=== PATIENT | male | born 1990 | race African-American/Black ===

== ENCOUNTER 2017-06-18 01:53 | Inpatient (IN) | payer SELFPAY ==
[2017-06-18 02:41] LABS: Anion Gap 16 mmol/L (-14-95); Lactate 1.25 mmol/L (0.50-2.20); POC Est. GFR-MDRD-African-Amer Greater than 60; POC Estimated GFR-MDRD Greater than 60; T. Carbon Dioxide 4.4 mmol/L (1.0-85.0); pH (Venous) 7.115 (7.35-7.45); vO2 Saturation-calc 97.8 % (0.0-100.0)
[2017-06-18 02:55] LABS: Sodium 134 mmol/L (135-148)
[2017-06-18 02:56] LABS: Mode RA; Modified Allen's Test POSITIVE; Vent NO
[2017-06-18] MEDS ORDERED: Insulin Regular 100 units/100 ml in NS IVPB SCH (03:15)
[2017-06-18] MEDS ORDERED: Acetaminophen 325 MG TAB PO PRN (04:58)
[2017-06-18] MEDS ORDERED: Ondansetron HCl/PF 4 MG/2 ML Vial IVP PRN ×2 (04:58→05:17)
[2017-06-18] MEDS ORDERED: Sodium Chloride 0.9% 1,000 ML IV SCH (04:58)
[2017-06-18] MEDS ORDERED: Ondansetron ODT 4 MG TAB SL PRN (04:58)
[2017-06-18 05:00] VITALS: BMI 37.7
[2017-06-18] MEDS ORDERED: CCU Electrolyte Replacement 1 EACH IVPB ONE (05:17)
[2017-06-18] MEDS ORDERED: Dextrose 5 %-0.45 % NaCl 1,000 ML IV PRN (05:17)
[2017-06-18] MEDS ORDERED: Sodium Chloride 0.9% 1,000 ML IV PRN ×4 (05:17)
[2017-06-18] MEDS ORDERED: NS 0.9% w/ 20 MEQ KCL 1,000 ML IV PRN ×2 (05:17)
[2017-06-18] MEDS ORDERED: D5 1/2 NS w/20 mEq KCL 1,000 ML IV PRN (05:17)
[2017-06-18] MEDS ORDERED: HYDROcodone/Acetaminophen 7.5/325 mg Tablet PO PRN ×2 (05:30)
--- NOTE | 2017-06-18 05:30 | PDOC.EVN ---
Event Note - Event Note Event Note: Attedning H&P I personally evaluated the patient and discussed the management with Dr. Santos. I have reviewed the written H&P and it is repeated by me. I agree with the History, Examination, Assessment and Plan documented above with any addition or exceptions noted below. Mr. Cole has new onset Diabetes Mellitus with DKA. DKA protocol in place for fluid correction, glucose correction, and electrolyte therapy. I advised Mr Cole that central venous IV access would eb beneficial for him, and discussed risks and benefits. He does not consent to CVC placement. He is willing to reconsider when current IV access is lost.
[2017-06-18] MEDS ORDERED: Potassium Chloride 40 MEQ in Sodium Chloride 0.9% 250 ML 250 ML IVPB PRN (05:32)
[2017-06-18] MEDS ORDERED: Potassium Chloride 40 MEQ in Premix Bag 1 BAG IVPB PRN (05:32)
[2017-06-18] MEDS ORDERED: CCU ELECTROLYTE REPLACEMENT PROTOCOL FS PRN (05:32)
[2017-06-18] MEDS ORDERED: Potassium Phosphate 9 MMOL in Sodium Chloride 0.9% 100 ML IVPB PRN (05:32)
[2017-06-18] MEDS ORDERED: Potassium Phosphate 12 MMOL in Sodium Chloride 0.9% 250 ML 250 ML IV PRN (05:32)
[2017-06-18] MEDS ORDERED: Magnesium Oxide 400 MG TAB PO PRN ×2 (05:32)
[2017-06-18] MEDS ORDERED: Potassium Phosphate 15 MMOL in Sodium Chloride 0.9% 250 ML 250 ML IV PRN (05:32)
[2017-06-18] MEDS ORDERED: Magnesium 2 GM/NS 0.9% 100 ML 2 GM in Premix Bag 1 BAG IVPB PRN (05:32)
[2017-06-18] MEDS ORDERED: Potassium Chloride 20 MEQ TAB PO PRN (05:32)
[2017-06-18 06:19] LABS: BUN (Urea Nitrogen) 22 mg/dL (8.9-20.6); Calc. Creatinine Clearance 108 mL/min (70-130); Calcium 9.1 mg/dL (7.8-10.44); Chloride 104 mmol/L (98-107); Estimated GFR-MDRD 50; Magnesium 2.4 mg/dL (1.6-2.6); Phosphorus 2.5 mg/dL (2.3-4.7)
[2017-06-18 06:37] LABS: Carbon Dioxide Less than 8 mmol/L (22-29)
--- NOTE | 2017-06-18 06:43 | HP-2 ---
CODE STATUS: FULL. PRIMARY CARE PHYSICIAN: [facility] call from the nursing home. ATTENDING: Dr. Marlo Carr. RESIDENT: Kassie Santos D.O. HISTORIAN: Patient. CHIEF COMPLAINT: DKA transfer. HISTORY OF PRESENT ILLNESS: The patient is a 26-year-old male with no past medical history who prese nts as a transfer from [place] ED for newly diagnosed diabetes and diabetic ketoacidosis. Initi al blood sugar at [place] ED was 686. He was given two 2.5 liters and 10 units of insulin in [facility] ED. The patient reports he had been feeling bad for a month, but acutely worsened over the las t 3 days complaining of nausea, vomiting, abdominal pain, vision changes, polyuria, polydipsia and ge neralized weakness and fatigue. In our ER, he was given a 2 liter normal saline bolus. PAST MEDICAL HISTORY: None. PAST SURGICAL HISTORY: None. ALLERGIES: No known drug allergies. MEDICATIONS: None. FAMILY HISTORY: Dad with type 2 diabetes. SOCIAL HISTORY: Denies tobacco, alcohol, and drug use. Currently in nursing home since February. REVIEW OF SYSTEMS: GENERAL: Denies fever, weight or appetite changes. EYES: Reports vision changes. ENT: Denies nasal congestion, rhinorrhea. RESPIRATORY: Denies cough, congestion. Reports some shortness of breath. CARDIOVASCULAR: Denies chest pain, palpitations. GI: Reports nausea, vomiting, abdominal pain. No diarrhea or constipation. GENITOURINARY: Reports polyuria and polydipsia. SKIN: Denies rashes or lesions. MUSCULOSKELETAL: Reports pain from IV access placed at prior ED. NEURO: Reports generalized weakness, no syncope. PSYCHIATRIC: Denies anxiety and depression. PHYSICAL EXAMINATION: VITAL SIGNS: Blood pressure 146/81, pulse 100, respiratory rate 24, T-max 98.4, pulse ox 100% on sarah m air. Current weight 136.08 kilograms. GENERAL: The patient is alert and oriented x4, is obese, appropriately interactive, but does appear ill with increased respiratory rate and answering only in short sentences due to increased work of br eathing and generalized not feeling well. EYES: PERRLA, EOMI. ENT: Oropharynx within normal limits. Mucous membranes dry. NECK: Supple, without lymphadenopathy. CARDIOVASCULAR: Tachycardic, no murmurs. Radial pulses 2+. RESPIRATORY: Increased effort, no retractions. Clear to auscultation bilaterally. SKIN: Very dry throughout. ABDOMEN: Soft, nontender. Bowel sounds present. EXTREMITIES: No clubbing, cyanosis or edema. MUSCULOSKELETAL: Structure within normal limits. Tone within normal limits. NEUROLOGIC: No focal deficits. GCS 15. PSYCHIATRIC: Appropriate. LABORATORY DATA: CBC: White blood cell count 16.5, hemoglobin 16.4, hematocrit 51.4, platelets 401, MCV 85. Chemistries: Sodium 130, potassium 5.5, chloride 93, CO2 less than 8, BUN 27, creatinine 2.7, glucos e 668, GFR 34, calcium 10.0, total protein 9.8, albumin 4.9, AST 15, ALT 22, alkaline phosphatase 52, total bilirubin 0.3. Anion gap is about 30. The last point of care glucose was 372. UA; specific gravity 1.020, blood moderate, protein 100, leukocyte esterase negative, nitrites negati ve, ketones greater than or equal to 80. Glucose 500. Red blood cells 4-6, white blood cells 0-3, b acteria 0. ABG; pH 7.17, pCO2 14.8, PaO2 127.4. ASSESSMENT AND PLAN: 1. Metabolic acidosis secondary to diabetic ketoacidosis. Is being given 2 liters normal saline in the ED currently. We will do IV fluids per DKA protocol thereafter, BMP checks q.2h. Beta hydroxybut yrate has been ordered, mag and phos are pending. The patient's ABG is significant acidosis. His cl inical picture is compensated at this time. Will likely need quite a bit of fluid resuscitation for hypovolemia. They struggle getting IV access at the outside ED and continued here. He currently has an EJ line, but will likely need a central line placed. The patient is currently refusing central l ine at this time. 2. Newly diagnosed diabetes. C-peptide pending to determine type 1 versus type 2. We will consult case management for medication funding and resources. 3. Hyperkalemia with tachycardia, concerned with tachycardia. We will get an EKG to evaluate rhythm . 4. Hypovolemia. Will be getting fluid per DKA protocol. 5. VTE prophylaxis, sequential compression devices. DISPOSITION AND LENGTH OF HOSPITAL STAY: 1-2 days. Symptomatic medications will be provided. History and physical exam as well as management was discussed with Dr. Marlo Carr.
[2017-06-18 09:57] LABS: BUN (Urea Nitrogen) 18 mg/dL (8.9-20.6); Calc. Creatinine Clearance 132 mL/min (70-130); Calcium 8.7 mg/dL (7.8-10.44); Chloride 109 mmol/L (98-107); Estimated GFR-MDRD 64
[2017-06-18 10:02] LABS: Carbon Dioxide Less than 8 mmol/L (22-29)
[2017-06-18 11:08] LABS: Hemoglobin A1c 13.3 % (4.0-6.0)
--- NOTE | 2017-06-18 11:50 | ADD-PRG ---
DATE OF SERVICE: 06/18/2017 This is an addendum to the note of Dr. Wendy Miller. Mr. Cole is a 26-year-old black male patient who was admitted in diabetic ketoacidosis. He had not known he had diabetes, but had been feeling poorly for at least the last month. In any event, he had initially presented to the [place] ED and was subsequently transferred here with diabetic ketoa cidosis. Upon presentation to our institution his sodium was 130, potassium was 6.4, chloride 104, h is bicarbonate was less than 0.8, BUN 22, creatinine 1.94. His initial glucose was 329, but it had b een in excess of 600 at the [place] ED. He is currently on an insulin infusion. He is slightly lethargic, but easily arousable and when aroused he is alert and answers questions appropriately. F or now, we will continue his insulin infusion until the bicarbonate is nearer to 18 and add D5W when his blood glucose drops below 250, we are also of course continuing to monitor his potassium as well . When he is more awake and alert, we will begin to feed him.
[2017-06-18 14:11] LABS: Anion Gap 16 mmol/L (10-20); BUN (Urea Nitrogen) 16 mg/dL (8.9-20.6); Calc. Creatinine Clearance 154 mL/min (70-130); Calcium 8.6 mg/dL (7.8-10.44); Carbon Dioxide 11 mmol/L (22-29); Chloride 111 mmol/L (98-107); Estimated GFR-MDRD 76
[2017-06-18 16:50] LABS: Anion Gap 14 mmol/L (10-20); BUN (Urea Nitrogen) 14 mg/dL (8.9-20.6); Calc. Creatinine Clearance 143 mL/min (70-130); Calcium 8.3 mg/dL (7.8-10.44); Carbon Dioxide 12 mmol/L (22-29); Chloride 110 mmol/L (98-107); Estimated GFR-MDRD 70
[2017-06-18] MEDS ORDERED: Dextrose 50% Abboject 50 ML SYRINGE SLOW IVP PRN (22:33)
[2017-06-18] MEDS ORDERED: Dextrose 5% in Water 1,000 ML IV PRN (22:33)
[2017-06-18 22:37] LABS: Anion Gap 13 mmol/L (10-20); BUN (Urea Nitrogen) 12 mg/dL (8.9-20.6); Calc. Creatinine Clearance 141 mL/min (70-130); Calcium 8.7 mg/dL (7.8-10.44); Carbon Dioxide 15 mmol/L (22-29); Chloride 107 mmol/L (98-107); Estimated GFR-MDRD 69
[2017-06-18] MEDS: Lactated Ringer's 1,000 ML IV SCH (22:53)
--- NOTE | 2017-06-19 00:26 | CON ---
DATE OF SERVICE: 06/18/2017 SERVICE: Pulmonary Medicine. REASON FOR CONSULTATION: IMCU patient. HISTORY OF PRESENT ILLNESS: The patient is a 26-year-old -Russian male with past medical his tory significant for a 3-day history of nausea, vomiting, and diarrhea. Prior to that, he had about a 3 month history of excessive water intake, micturition, and weight reduction. Either way, he start ed having nausea, vomiting, and diarrhea for the past couple of days. He presented to the emergency department and was discovered to be hyperglycemic. Toxicology had a positive beta hydroxybutyric aci d level. As such, he was subsequently placed in IMCU and treated for DKA. His gap was closed and he has a voracious appetite at this point. He has essentially returned to his usual state of health. He denies any current fevers, chills, nausea, vomiting, or chest discomfort. PAST MEDICAL HISTORY: Type 2 diabetes mellitus, new diagnosis. PAST SURGICAL HISTORY: None. SOCIAL HISTORY: Negative for alcohol, tobacco or illicit drug use. He has been in retirement since February . FAMILY HISTORY: Dad with type 2 diabetes mellitus. MEDICATIONS: List of his inpatient medications were reviewed. No couple of small updates were made at this time. ALLERGIES: No known drug allergies. REVIEW of SYSTEMS: General, head, ears, eyes, nose, throat, cardiovascular, respiratory, GI, , mus culoskeletal, neurologic and skin is negative except as mentioned in the HPI. PHYSICAL EXAMINATION: VITAL SIGNS: Afebrile, pulse 102, blood pressure 137/74, respirations 16, saturation 100% on room ai r. GENERAL: The patient is awake, alert, in no apparent distress. LUNGS: Decent air entry with no prolonged expiratory phase, wheezing, rhonchi or crackles. HEART: Normal rate, regular. ABDOMEN: Soft, nontender, nondistended. Bowel sounds positive. MUSCULOSKELETAL: No cyanosis or clubbing. There is no pitting in the bilateral lower extremities. NEUROLOGIC: Grossly nonfocal. LABORATORY DATA: WBC 16.5, hemoglobin 16.4, platelets 401,000. Neutrophil count is 87%. PH 7.17, p CO2 of 15, pO2 is 127. Blood sugar ranges from 186 to 261. Creatinine is 1.46, bicarbonate 12, anio n gap has resolved. Chloride 110, sodium 132. Basic metabolic profile otherwise unremarkable. Live r functions studies were previously unremarkable on presentation. Urinalysis is positive for ketones , glucose, protein, and bilirubin. Beta hydroxybutyric acid is clearing to 9.57. ASSESSMENT: 1. Diabetic ketoacidosis. 2. Diabetes mellitus. 3. Metabolic encephalopathy, improving. PLAN: At this point, the patient is cleared his anion gap. Additionally, he has quite a good appeti te. As such, he can be transitioned over to subcutaneous insulin, NSAID. Pulmonary Critical Care wi ll continue to follow while the patient remains in this location. Per my perspective, likely be stab le in 24-hours for transition to the medical unit.
[2017-06-19 05:06] LABS: #Eosinphils 0.3 thou/uL (0.0-0.7); #Lymphocytes 1.7 thou/uL (1.20-3.40); #Monocytes 0.8 thou/uL (0.11-0.59); #Neutrophils 4.1 thou/uL (1.40-6.50); %Basophils 0.6 % (0.0-1.0); %Eosinophils 3.8 % (0.0-10.0); %Monocytes 11.2 % (0.0-10.0); Hematocrit 35.6 % (42.0-52.0); Mean Platelet Volume 8.9 fL (7.4-10.4); Red Blood Cell (RBC) Count 4.29 mill/uL (4.70-6.10); White Blood Cell (WBC) Count 6.9 thou/uL (4.8-10.8)
[2017-06-19 05:16] LABS: Anion Gap 14 mmol/L (10-20); BUN (Urea Nitrogen) 10 mg/dL (8.9-20.6); Calc. Creatinine Clearance 174 mL/min (70-130); Calcium 8.8 mg/dL (7.8-10.44); Carbon Dioxide 14 mmol/L (22-29); Chloride 107 mmol/L (98-107); Estimated GFR-MDRD 88
--- NOTE | 2017-06-19 06:33 | PDOC.FM ---
- Subjective Subjective: Patient doing well this AM. No significant overnight events. He is much more alert and talkative. Patient asked good questions about new diagnosis of diabetes and what to expect. We discussed the need for patient to be on insulin and to focus on diet and exercise. - Objective MAR Reviewed: Yes Vital Signs & Weight: Vital Signs (12 hours) Temp Pulse Resp BP Pulse Ox 06/19/17 04:00 98.0 F 84 16 146/68 H 100 06/19/17 00:00 98.6 F 81 18 132/62 100 06/18/17 20:00 98.4 F 102 H 16 100 06/18/17 19:00 98.4 F 102 H 16 137/74 100 Weight Weight 137.665 kg I&O: 06/17/17 06/18/17 06/19/17 06:59 06:59 06:59 Intake Total 1100 5717 Output Total 820 3175 Balance 280 2542 Result Diagrams: 06/19/17 03:57 06/19/17 03:57 EKG Reviewed by me: No Radiology Reviewed by me: No Phys Exam - Physical Examination Constitutional: NAD Obese HEENT: moist MMs, sclera anicteric Neck: supple Respiratory: clear to auscultation bilateral Cardiovascular: RRR, no significant murmur Gastrointestinal: soft, non-tender, no distention, positive bowel sounds Musculoskeletal: no edema, pulses present Neurological: non-focal, moves all 4 limbs Psychiatric: A&O x 3 Skin: no rash, cap refill <2 seconds Dx/Plan (1) Diabetic ketoacidosis Code(s): E13.10 - OTH DIABETES MELLITUS WITH KETOACIDOSIS WITHOUT COMA Status : Acute Qualifiers: Diabetes mellitus complication detail: without coma (2) Hypovolemia Code(s): E86.1 - HYPOVOLEMIA Status: Resolved (3) Diabetes Code(s): E11.9 - TYPE 2 DIABETES MELLITUS WITHOUT COMPLICATIONS Status: Acute - Plan Plan: Plan: Diabetic ketoacidosis: - BG > 600 on admission, patient tachycardia, tachypneic, HCO3 <8, pCO2 14, Anion gap >30 - Patient started on DKA protocol - Transitioned to SC insulin once gap closed per Pulmonology; will get first dose of SC insulin this AM - Detemir 20 units QAM, QPM - Mealtime insulin 10 units each meal - Transition to medical floor and monitor - CC diet Hypovolemia: - Resolved - 2/2 DKA Diabetes Mellitus: - Likely type II - C-peptide pending - Patient will require insulin for new onset diabetes - HgA1c 13.3 - ADA diet Dispo: Anticipate discharge home within the next 24-48 hours
[2017-06-19] MEDS: HumaLOG 300 UNITS/3 ML VIAL SC SCH ×3 (08:12→17:32)
[2017-06-19] MEDS: Lactated Ringer's 1,000 ML IV SCH ×2 (08:16→20:34)
[2017-06-19] MEDS ORDERED: Insulin Detemir 100 UNITS/ML 20 UNITS in Pre-Filled Syringe 1 EACH SC SCH ×2 (09:00→21:00)
[2017-06-19] MEDS ORDERED: FLU VACC QS2017-18 36 mo. & older 0.5 ML SYRINGE IM ONE (09:00)
[2017-06-19] MEDS ORDERED: Potassium Chloride 20 MEQ TAB PO SCH (11:45)
--- NOTE | 2017-06-19 11:47 | PRG ---
DATE OF SERVICE: 06/19/2017 SERVICE: Pulmonary Medicine. INTERVAL HISTORY: The patient was doing well overnight. His abdominal discomfort has resolved. He is not having any significant difficulty with breathing. He denies any current fevers, chills, nausea or vomiting. He ate this morning a little bit of cereal. It went down well and he did not have any significant discomfort associated with this. PHYSICAL EXAMINATION: VITAL SIGNS: Afebrile, pulse 81, blood pressure 140/75, respirations 18, saturation 100% on room air. GENERAL: Patient is awake, alert, no apparent distress. LUNGS: Excellent air entry. There is no prolonged expiratory phase or wheezing. HEART: Normal rate, regular. ABDOMEN: Soft, nontender, nondistended. Bowel sounds are positive. MUSCULOSKELETAL: No cyanosis or clubbing. There is no pitting in the bilateral lower extremities. NEUROLOGIC: Grossly nonfocal. LABORATORY DATA: WBC 6.9, hemoglobin 12.6, and platelets 228,000. Blood sugar ranges from 145-396. Potassium is 3.4. Bicarbonate 14 and gently down trending. Anion gap is also 14. ASSESSMENT: 1. Diabetic ketoacidosis. 2. Diabetes mellitus. 3. Metabolic encephalopathy, resolved. PLAN: The patient would likely be stable for transition to the floor. That being said, I am not comfortable transitioning over to such high doses of insulin. I would like to take some time to get up to where he needs it. For the time being, he may need intermittent doses of his insulin drip which can be weaned away as we start to increase his subcutaneous doses. It is curious that his C-peptide is quite low, but that he also requires very high doses of insulin. It suggests that he has both insulin resistance and an inability to create insulin. He may be a good candidate for metformin in the outpatient setting as well. Potassium will be replaced today again. Once he is off of his insulin drip, he can be transitioned to the floor. SHAYAN
[2017-06-19] MEDS: HumaLOG 300 UNITS/3 ML VIAL SC PRN ×2 (11:49→17:32)
--- NOTE | 2017-06-19 12:15 | ADD-PRG ---
DATE OF SERVICE: 06/19/2017 This is an addendum to the note of Dr. Wendy Miller. Mr. Cole this morning he is awake, alert, in no acute distress. His DKA is nearing resolution. He was transitioned late yesterday to subcutaneous insulin. He is eating a good diet. This morning's labs; sodium is 132, potassium 3.4, chloride 107, bicarbonate still slightly low at 14 with an anion gap of 14. Glucose is 148. He will be transitioned later to the regular floor and co ntinued on his basal and premeal insulin.
[2017-06-19 15:43] LABS: Anion Gap 18 mmol/L (10-20); BUN (Urea Nitrogen) 11 mg/dL (8.9-20.6); Calc. Creatinine Clearance 151 mL/min (70-130); Carbon Dioxide 15 mmol/L (22-29); Chloride 104 mmol/L (98-107); Estimated GFR-MDRD 72
[2017-06-19] MEDS ORDERED: Polyethylene Glycol 3350 17 GM Packet PO PRN (20:05)
[2017-06-19] MEDS ORDERED: Polyethylene Glycol 3350 17 GM Packet PO SCH (20:15)
[2017-06-19] MEDS: Docusate 100 MG CAP PO SCH (20:32)
[2017-06-19] MEDS: Insulin Detemir 100 UNITS/ML 25 UNITS in Pre-Filled Syringe SC SCH (20:47)
[2017-06-20 05:58] LABS: Anion Gap 15 mmol/L (10-20); BUN (Urea Nitrogen) 8 mg/dL (8.9-20.6); Calc. Creatinine Clearance 193 mL/min (70-130); Calcium 8.8 mg/dL (7.8-10.44); Carbon Dioxide 18 mmol/L (22-29); Chloride 103 mmol/L (98-107); Estimated GFR-MDRD Greater than 90
[2017-06-20] MEDS ORDERED: Potassium Chloride 20 MEQ TAB PO SCH ×2 (06:15→15:30)
[2017-06-20] MEDS: Lactated Ringer's 1,000 ML IV SCH ×2 (06:17→17:14)
[2017-06-20] MEDS: HumaLOG 300 UNITS/3 ML VIAL SC PRN ×4 (06:26→20:32)
--- NOTE | 2017-06-20 06:26 | PDOC.FM ---
- Objective Vital Signs & Weight: Vital Signs (12 hours) Temp Pulse Resp BP BP Pulse Ox 06/20/17 04:00 97.7 F 96 20 134/65 100 06/20/17 00:00 98.4 F 74 18 140/69 100 06/19/17 19:58 98.5 F 91 16 100 06/19/17 19:54 98.5 F 91 16 143/64 H 100 Weight Weight 137.665 kg I&O: 06/18/17 06/19/17 06/20/17 06:59 06:59 06:59 Intake Total 1100 5920 1860 Output Total 820 3175 800 Balance 280 2745 1060 Result Diagrams: 06/19/17 03:57 06/20/17 05:19 <Robert Patel - Last Filed: 06/20/17 06:24> - Objective Vital Signs & Weight: Vital Signs (12 hours) Temp Pulse Resp BP BP Pulse Ox 06/20/17 08:50 98.1 F 95 20 132/69 100 06/20/17 04:00 97.7 F 96 20 134/65 100 06/20/17 00:00 98.4 F 74 18 140/69 100 Weight Weight 137.665 kg I&O: 06/19/17 06/20/17 06/21/17 06:59 06:59 06:59 Intake Total 5920 1860 1185 Output Total 3175 800 Balance 2745 1060 1185 Result Diagrams: 06/19/17 03:57 06/20/17 05:19 <Parris Bernardo - Last Filed: 06/20/17 09:53> Dx/Plan (1) Diabetic ketoacidosis Code(s): E13.10 - [facility] DIABETES MELLITUS WITH KETOACIDOSIS WITHOUT COMA Status : Acute QualifierTitle: Diabetes mellitus complication detail: without coma Plan: BG > 600 on admission, patient tachycardia, tachypneic, HCO3 <8, pCO2 14, Anion gap >30 - Patient started on DKA protocol - Transitioned to SC insulin once gap closed per Pulmonology; will get first dose of SC insulin this AM - Detemir 20 units QAM, QPM - Mealtime insulin 10 units each meal - Transition to medical floor and monitor - CC diet -Blood glucose still not well controlled, 251 this AM (2) Diabetes Code(s): E11.9 - TYPE 2 DIABETES MELLITUS WITHOUT COMPLICATIONS Status: Acute (3) Hypokalemia Code(s): E87.6 - HYPOKALEMIA Status: Acute Plan: -New today, 2.9 -Will replete Potassium this AM. (4) Hypovolemia Code(s): E86.1 - HYPOVOLEMIA Status: Resolved Plan: - Resolved - 2/2 DKA - Plan Plan: Will recheck Potassium this afternoon. Will continue to work on Blood glucose levels. <Robert Patel - Last Filed: 06/20/17 06:24> Attending Addendum - Attending Addendum I personally evaluated the patient and discussed the management with Dr. Patel I agree with the History, Examination, Assessment and Plan documented above with any addition or exceptions noted below- Patient without complaints. Afebrile VSS A/P: DKA- resolved. 2) Newly diagnosed DM- continue to adjust insulin based on glucose. Will contact facility to ensure availablility of type of insulin. Probable discharge soon. 3) Hypokalemia- replace potassium <Parris Bernardo - Last Filed: 06/20/17 09:53>
[2017-06-20] MEDS: Docusate 100 MG CAP PO SCH ×2 (08:34→20:31)
[2017-06-20] MEDS: HumaLOG 300 UNITS/3 ML VIAL SC SCH ×3 (08:36→17:16)
[2017-06-20] MEDS ORDERED: Insulin Detemir 100 UNITS/ML 25 UNITS in Pre-Filled Syringe 1 EACH SC SCH (09:00)
[2017-06-20 13:04] LABS: Anion Gap 14 mmol/L (10-20); BUN (Urea Nitrogen) 8 mg/dL (8.9-20.6); Calc. Creatinine Clearance 185 mL/min (70-130); Calcium 8.7 mg/dL (7.8-10.44); Carbon Dioxide 20 mmol/L (22-29); Chloride 103 mmol/L (98-107); Estimated GFR-MDRD 90
[2017-06-20] MEDS: Insulin Detemir 100 UNITS/ML 25 UNITS in Pre-Filled Syringe SC SCH (21:39)
[2017-06-20 22:51] LABS: Anion Gap 12 mmol/L (10-20); BUN (Urea Nitrogen) 8 mg/dL (8.9-20.6); Calc. Creatinine Clearance 185 mL/min (70-130); Calcium 8.5 mg/dL (7.8-10.44); Carbon Dioxide 24 mmol/L (22-29); Chloride 100 mmol/L (98-107); Estimated GFR-MDRD 90
[2017-06-21] MEDS: HumaLOG 300 UNITS/3 ML VIAL SC PRN ×3 (06:08→21:18)
[2017-06-21 06:11] LABS: Anion Gap 11 mmol/L (10-20); BUN (Urea Nitrogen) 7 mg/dL (8.9-20.6); Calc. Creatinine Clearance 214 mL/min (70-130); Carbon Dioxide 25 mmol/L (22-29); Chloride 102 mmol/L (98-107); Estimated GFR-MDRD Greater than 90
[2017-06-21] MEDS ORDERED: Potassium Chloride 20 MEQ TAB PO SCH ×2 (06:30→07:30)
--- NOTE | 2017-06-21 07:23 | PDOC.FM ---
- Subjective Subjective: Patient had a mitchell. He has been up and walking around and starting to feel more like himself. No other complaints. - Objective Vital Signs & Weight: Vital Signs (12 hours) Temp Pulse Resp BP Pulse Ox 06/20/17 20:00 97.8 F 97 18 142/69 H 100 Weight Weight 137.665 kg I&O: 06/20/17 06/21/17 06/22/17 06:59 06:59 06:59 Intake Total 1860 4965 Output Total 800 Balance 1060 4965 Result Diagrams: 06/19/17 03:57 06/21/17 05:25 <Robert Patel - Last Filed: 06/21/17 08:38> - Objective Vital Signs & Weight: Vital Signs (12 hours) Temp Pulse Resp BP Pulse Ox 06/21/17 08:16 97.9 F 77 16 129/74 99 Weight Weight 137.665 kg I&O: 06/20/17 06/21/17 06/22/17 06:59 06:59 06:59 Intake Total 1860 4965 Output Total 800 Balance 1060 4965 Result Diagrams: 06/19/17 03:57 06/21/17 05:25 <Parris Bernardo - Last Filed: 06/21/17 11:15> Phys Exam - Physical Examination HEENT: moist MMs Neck: no nodes, no JVD Respiratory: no wheezing, clear to auscultation bilateral Cardiovascular: RRR, no significant murmur Gastrointestinal: soft, non-tender, no distention, positive bowel sounds Musculoskeletal: no edema, pulses present Neurological: non-focal, normal sensation, moves all 4 limbs Lymphatic: no nodes Psychiatric: normal affect, A&O x 3 Skin: no rash <Robert Patel - Last Filed: 06/21/17 08:38> Dx/Plan (1) Diabetic ketoacidosis Code(s): E13.10 - OTH DIABETES MELLITUS WITH KETOACIDOSIS WITHOUT COMA Status : Resolved QualifierTitle: Diabetes mellitus complication detail: without coma Plan: BG > 600 on admission, patient tachycardia, tachypneic, HCO3 <8, pCO2 14, Anion gap >30 - Patient started on DKA protocol - Transitioned to SC insulin once gap closed per Pulmonology; will get first dose of SC insulin this AM - Detemir 30 units QAM, QPM - Increased Mealtime insulin to 14 units each meal - Aggressive sliding scale as well using 30u extra per day - Transition to medical floor and monitor - CC diet -Blood glucose still not well controlled, 285 this AM (2) Diabetes Code(s): E11.9 - TYPE 2 DIABETES MELLITUS WITHOUT COMPLICATIONS Status: Acute Plan: -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 -Likely with insulin -May be able to use some orals in the future. -Will contact senior care to see what is available for treatment as he will be incarcerated for at least next 6 months (3) Hypokalemia Code(s): E87.6 - HYPOKALEMIA Status: Acute Plan: -New today, 3.2 -Will replete Potassium this AM. (4) Hypovolemia Code(s): E86.1 - HYPOVOLEMIA Status: Resolved Plan: - Resolved - 2/2 DKA - Plan Plan: Will need to get blood glucose under control before discharge. <Robert Patel - Last Filed: 06/21/17 08:38> Attending Addendum - Attending Addendum I personally evaluated the patient and discussed the management with Dr. Patel I agree with the History, Examination, Assessment and Plan documented above with any addition or exceptions noted below- Patient without complaints. afebrile VSS. A/P: 1) DKA- resolved; 2) Newly diagnosed DM probably type 1- required 30 units additional insulin yesterday. Insulin adjusted based on this. Continue to monitor. <Parris Bernardo - Last Filed: 06/21/17 11:15>
[2017-06-21] MEDS: HumaLOG 300 UNITS/3 ML VIAL SC SCH ×4 (08:22→18:19)
[2017-06-21] MEDS: Docusate 100 MG CAP PO SCH ×2 (08:23→21:15)
[2017-06-21] MEDS ORDERED: Insulin Detemir 100 UNITS/ML 30 UNITS in Pre-Filled Syringe 1 EACH SC SCH ×2 (09:00→21:00)
[2017-06-21] MEDS: INSULIN DETEMIR SC SCH (21:13)
[2017-06-21] MEDS: PRE FILLED SC SCH (21:13)
[2017-06-22] MEDS: HumaLOG 300 UNITS/3 ML VIAL SC PRN ×3 (06:01→16:18)
[2017-06-22 06:50] LABS: Anion Gap 11 mmol/L (10-20); BUN (Urea Nitrogen) 7 mg/dL (8.9-20.6); Calc. Creatinine Clearance 260 mL/min (70-130); Calcium 8.4 mg/dL (7.8-10.44); Carbon Dioxide 27 mmol/L (22-29); Chloride 103 mmol/L (98-107); Estimated GFR-MDRD Greater than 90
[2017-06-22] MEDS: HumaLOG 300 UNITS/3 ML VIAL SC SCH ×3 (07:55→16:18)
[2017-06-22] MEDS: INSULIN DETEMIR SC SCH ×2 (07:56→20:30)
[2017-06-22] MEDS: PRE FILLED SC SCH ×2 (07:56→20:30)
[2017-06-22] MEDS: Docusate 100 MG CAP PO SCH ×2 (08:00→20:32)
--- NOTE | 2017-06-22 08:43 | PDOC.FM ---
- Subjective Subjective: Doing fine this morning. Denies any acute events overnight. Denies any lightheadness, dizziness, sweating. Denies any signs of feeling hypoglycemic. No concerns or complaints this morning. - Objective MAR Reviewed: Yes Vital Signs & Weight: Vital Signs (12 hours) Temp Pulse Resp BP Pulse Ox 06/22/17 07:25 98.1 F 84 20 124/74 100 Weight Weight 137.665 kg I&O: 06/21/17 06/22/17 06/23/17 06:59 06:59 06:59 Intake Total 4965 1850 Balance 4965 1850 Result Diagrams: 06/19/17 03:57 06/22/17 05:56 Radiology Reviewed by me: Yes (No new images to review) <Chet Keating - Last Filed: 06/22/17 08:51> - Objective Vital Signs & Weight: Vital Signs (12 hours) Temp Pulse Resp BP Pulse Ox 06/22/17 08:00 98.1 F 84 20 98 06/22/17 07:25 98.1 F 84 20 124/74 100 Weight Weight 137.665 kg I&O: 06/21/17 06/22/17 06/23/17 06:59 06:59 06:59 Intake Total 4965 1850 Balance 4965 1850 Result Diagrams: 06/19/17 03:57 06/22/17 05:56 <Steve Gallego R - Last Filed: 06/22/17 11:59> Phys Exam - Physical Examination HEENT: PERRLA, moist MMs Neck: no nodes, supple, full ROM Respiratory: no wheezing, no rales, no rhonchi, clear to auscultation bilateral Cardiovascular: RRR, no significant murmur, no rub Gastrointestinal: soft, non-tender, no distention, positive bowel sounds Musculoskeletal: no edema, pulses present Neurological: non-focal, normal sensation, moves all 4 limbs Lymphatic: no nodes Psychiatric: normal affect Skin: no rash, normal turgor <Chet Keating - Last Filed: 06/22/17 08:51> Dx/Plan (1) Diabetes Code(s): E11.9 - TYPE 2 DIABETES MELLITUS WITHOUT COMPLICATIONS Status: Acute QualifierTitle: Diabetes mellitus type: type 1 Diabetes mellitus complication status: with ketoacidosis Diabetes mellitus complication detail: without coma Qualified Code(s): E10.10 - Type 1 diabetes mellitus with ketoacidosis without coma (2) Hypokalemia Code(s): E87.6 - HYPOKALEMIA Status: Acute (3) Diabetic ketoacidosis Code(s): E13.10 - [facility] DIABETES MELLITUS WITH KETOACIDOSIS WITHOUT COMA Status : Resolved QualifierTitle: Diabetes mellitus type: type 1 Diabetes mellitus complication detail: without coma Qualified Code(s): E10.10 - Type 1 diabetes mellitus with ketoacidosis without coma - Plan Plan: (1) Diabetic ketoacidosis BG > 600 on admission, patient tachycardia, tachypneic, HCO3 <8, pCO2 14, Anion gap >30 - Patient started on DKA protocol and has since then resolved -Hgb A1c- 13.3 - Transitioned to SC insulin now that gap has closed. - Detemir 35 units QAM, QPM - Increased Mealtime insulin to 16 units each meal - Aggressive sliding scale- Needed 10 units this morning - CC diet, Diabetes education -Blood glucose still not well controlled, still in upper 200s to low 300. 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 -Nursing Home contacted. Can get any medication he needs (3) Hypokalemia -3.2 again this morning. Will continue to monitor with daily BMP -Will give Potassium this AM. (4) Hypovolemia - Resolved - 2/2 DKA <Chet Keating - Last Filed: 06/22/17 08:51> Attending Addendum - Attending Addendum I personally evaluated the patient and discussed the management with Dr. Keating. I agree with the History, Examination, Assessment and Plan documented above with any addition or exceptions noted below. Patient with continued hyperglycemia despite increasing his insulin regimen. Will readjust regimen today and ensure we avoid hypoglycemia. Will add Metformin to help with insulin sensitivity as likely has some degree of insulin resistance though his clinical picture is more consistent with Type I DM. <Steve Gallego - Last Filed: 06/22/17 11:59>
[2017-06-22] MEDS ORDERED: Potassium Chloride 20 MEQ TAB PO SCH (08:45)
[2017-06-22] MEDS ORDERED: metFORMIN 500 MG TAB PO SCH (12:30)
[2017-06-22] MEDS ORDERED: HumaLOG 300 UNITS/3 ML VIAL SC SCH (12:30)
[2017-06-23] MEDS: HumaLOG 300 UNITS/3 ML VIAL SC PRN ×2 (05:46→11:38)
[2017-06-23 05:50] LABS: Anion Gap 9 mmol/L (10-20); BUN (Urea Nitrogen) 6 mg/dL (8.9-20.6); Calc. Creatinine Clearance 243 mL/min (70-130); Calcium 8.6 mg/dL (7.8-10.44); Carbon Dioxide 29 mmol/L (22-29); Chloride 101 mmol/L (98-107); Estimated GFR-MDRD Greater than 90
[2017-06-23] MEDS ORDERED: Potassium Chloride 20 MEQ TAB PO SCH (06:30)
[2017-06-23 07:51] VITALS: BP 126/59; TEMP 97.7
[2017-06-23] MEDS ORDERED: metFORMIN 500 MG TAB PO SCH ×2 (08:00→17:00)
[2017-06-23] MEDS: Docusate 100 MG CAP PO SCH (08:10)
[2017-06-23] MEDS: HumaLOG 300 UNITS/3 ML VIAL SC SCH ×2 (08:11→11:38)
--- NOTE | 2017-06-23 08:50 | PDOC.FM ---
- Subjective Subjective: Pt doing well. Denies any acute events overnight. Denies any signs or sx's of hypoglycemia. Tolerated Metformin well. - Objective MAR Reviewed: Yes Vital Signs & Weight: Vital Signs (12 hours) Temp Pulse Resp BP Pulse Ox 06/23/17 07:15 97.7 F 74 16 126/59 L 99 Weight Weight 137.665 kg I&O: 06/22/17 06/23/17 06/24/17 06:59 06:59 06:59 Intake Total 1850 1000 Balance 1850 1000 Result Diagrams: 06/19/17 03:57 06/23/17 05:18 Radiology: (1) Diabetic ketoacidosis BG > 600 on admission, patient tachycardia, tachypneic, HCO3 <8, pCO2 14, Anion gap >30 - Patient started on DKA protocol and has since then resolved -Hgb A1c- 13.3 - Transitioned to SC insulin now that gap has closed. - Detemir 35 units QAM, QPM - Increased Mealtime insulin to 20 units each meal ' -Likely still needs both basal dose and meal time dosing adjusted. Will need to increase. Blood sugar fell once yesterday below 200. Overall sugars still elevated in high 200s. Will adjust insulin. Also started on Metformin. Will increase to BID. - Aggressive sliding scale- Needed around 40 units still total yesterday. - CC diet, Diabetes education (2) Diabetes -Will need spiral winding machine helper therapy with insulin for the time being -Started on metformin yesterday. Likely has mixed picture of type 1 and type 2 diabetes. Will increased metformin to BID. -Correction contacted. Can get any medication he needs (3) Hypokalemia -3.6. Will give KCl again this morning as low normal and potassium has consistently been low. Will continue to monitor with daily BMP (4) Hypovolemia - Resolved - 2/2 DKA <Chet Ketaing - Last Filed: 06/23/17 08:50> - Objective Vital Signs & Weight: Vital Signs (12 hours) Temp Pulse Resp BP Pulse Ox 06/23/17 08:00 97.7 F 74 16 99 06/23/17 07:15 97.7 F 74 16 126/59 L 99 Weight Weight 137.665 kg I&O: 06/22/17 06/23/17 06/24/17 06:59 06:59 06:59 Intake Total 1850 1000 Balance 1850 1000 Result Diagrams: 06/19/17 03:57 06/23/17 05:18 <Steve Gallego R - Last Filed: 06/23/17 12:35> Phys Exam - Physical Examination HEENT: PERRLA, moist MMs Neck: no nodes, no JVD, supple, full ROM Respiratory: no wheezing, no rales, no rhonchi Cardiovascular: RRR, no significant murmur, no rub Gastrointestinal: soft, non-tender, no distention Musculoskeletal: no edema, pulses present Neurological: non-focal, normal sensation, moves all 4 limbs Lymphatic: no nodes Psychiatric: normal affect, A&O x 3 Skin: no rash, normal turgor, cap refill <2 seconds <Chet Keating - Last Filed: 06/23/17 08:50> Dx/Plan (1) Diabetes Code(s): E11.9 - TYPE 2 DIABETES MELLITUS WITHOUT COMPLICATIONS Status: Acute QualifierTitle: Diabetes mellitus type: type 1 Diabetes mellitus complication status: with ketoacidosis Diabetes mellitus complication detail: without coma Qualified Code(s): E10.10 - Type 1 diabetes mellitus with ketoacidosis without coma (2) Hypokalemia Code(s): E87.6 - HYPOKALEMIA Status: Acute (3) Diabetic ketoacidosis Code(s): E13.10 - OTH DIABETES MELLITUS WITH KETOACIDOSIS WITHOUT COMA Status : Resolved QualifierTitle: Diabetes mellitus type: type 1 Diabetes mellitus complication detail: without coma Qualified Code(s): E10.10 - Type 1 diabetes mellitus with ketoacidosis without coma <Chet Keating - Last Filed: 06/23/17 08:50> Attending Addendum - Attending Addendum I personally evaluated the patient and discussed the management with Dr. Keating. I agree with the History, Examination, Assessment and Plan documented above with any addition or exceptions noted below. Patient blood sugars continue to be elevated, but obtaining better control compared to admission. He is on an extensive insulin requirement, likely 2/2 some degree of insulin resistance. We will escalate Metformin therapy. As blood sugars mostly 200s, should be stable for d/c back to halfway as he has support there to ensure he is taking medications. Will need outpatient mgmt of his insulin therapy to obtain better control. <Steve aGllego R - Last Filed: 06/23/17 12:35>
[2017-06-23] MEDS: PRE FILLED SC SCH (10:10)
[2017-06-23] MEDS: INSULIN DETEMIR SC SCH (10:10)
[2017-06-23] MEDS ORDERED: PRE FILLED SC SCH (21:00)
[2017-06-23] MEDS ORDERED: INSULIN DETEMIR SC SCH (21:00)
[2017-06-24] MEDS ORDERED: INSULIN DETEMIR SC SCH (09:00)
[2017-06-24] MEDS ORDERED: PRE FILLED SC SCH (09:00)
--- NOTE | 2017-06-24 13:29 | DIS-2 ---
DATE OF ADMISSION: 06/18/2017 DATE OF DISCHARGE: 06/23/2017 CONSULTATIONS: Pulmonology Critical Care, Dr. Enrique Villafuerte on 06/18/2017. No imaging. PRIMARY DIAGNOSES: 1. Diabetic ketoacidosis due to a new onset type 1 diabetes. 2. New onset type 1 diabetes. 3. Hypokalemia. 4. Hypovolemia. DISCHARGE MEDICATIONS: We sent him on Humalog 20 units subcu a.c. We sent him on Levemir 39 units i n the morning and night. We sent him home on metformin 500 mg p.o. b.i.d. HISTORY OF PRESENT ILLNESS AND BRIEF HOSPITAL COURSE: This is a 26-year-old male with no past medica l history, who was transferred from [place] in [facility]. His initial blood sugar was 686, his potass ium was 5.5, his anion gap was 30. His ABG had a pH of 7.17, pCO2 of 14.8, PaO2 of 127. He was give n 2 liters bolus and he was given IV fluids per the DK protocol, was getting BMP checks q.2 hours. He was very dehydrated when he got admitted, his sodium was a little low at 130. His potassium was h igh, as this was newly diagnosed diabetes, I will get a C-peptide to rule out a type 1 versus type 2. The C-peptide would be low at 0.9 and favoring a diagnosis of type 1 diabetes. They ordered a beta hydroxybutyrate, but I do not see one in the labs right now. He had hyperkalemia with tachycardia; they got an EKG, which showed a stable rhythm, and he will begin on an insulin drip per DKA protocol. When he was seen later that day his initial glucose down to 329, but he was still lethargic, but ar ousable and answers questions appropriately. They continue with insulin infusion over the night and in the morning where his bicarbonate got near to 18. He would close his gap early that morning and w e will switch him over to subcutaneous insulin. The next day on the they had him on detemir 20 units at the q.p.m. and mealtime dose of 10 units each meal throughout the course of the day, blood s ugar was still be very elevated in the upper 200s, upper 300s, so the next day, they would increase h is mealtime insulin up to 15 to include his detemir 25. Continue to follow, he still stay elevated i n the 250s to 300s. His potassium drops at times in low 2.9, on the morning of the , they will r eplace with potassium. On the , he is up to 30 units of detemir and 14 units of mealtime insulin , still glucose would be up in the 285. His potassium was a little low at 3.2. Continue to replace the potassium and would increase the mealtime glucose as well. His hemoglobin A1c was 13.3 on admiss ion. He is on 35 units of detemir and 16 units of mealtime insulin and still needing aggressive sliding sc raciel around 40 units every day. He is still in the upper 200s and 300s, so we increased his mealtime insulin to 20 units that day. Continue to follow, he had so be elevated, we have 1 blood sugar come down in the 180s. Finally, doing a little bit better, so this time on the day of discharge, we decid ed to increase his baseline insulin to around 39 units, keep him at the 20 units of mealtime insulin and the patient was doing well over the last few days, had no problems, no symptoms, was feeling real ly well, feeling ready to go home, so we decided that he just need to be transitioned back to longterm wh ere he came from and they could continue working on his blood sugars there, also his blood sugars wer e still pretty elevated. He was weighed 137 kilograms, we thought maybe that he had a little bit of insulin resistance as well, so we would add metformin on the day prior to discharge, we did 500 mg th e first day and then went to b.i.d. This seemed to help his blood sugars a little bit and we think h e might have a little bit of type 1 and type 2 diabetes picture, so made sure that they would be able to keep managing sugars, get close followup. They agreed to have the appropriate insulin, we had st arted him at the longterm as well, so at this time, we decided to discharge him. DISCHARGE DISPOSITION: Stable. DISCHARGE LOCATION: Longterm. ACTIVITY: Activity as tolerated. DIET: Diabetic diet. FOLLOWUP: We will need to follow up with the longterm nurse daily, get daily blood sugar checks and get his sugar adjusted and will need to follow up with the primary care physician there within a week to make sure he is doing okay.
--- NOTE | 2017-06-27 16:48 | EKG ---
Test Reason : Blood Pressure : / mmHG Vent. Rate : 107 BPM Atrial Rate : 107 BPM P-R Int : 134 ms QRS Dur : 072 ms QT Int : 372 ms P-R-T Axes : 048 026 031 degrees QTc Int : 496 ms Sinus tachycardia Otherwise normal ECG Confirmed by SWATHI ANDRADE MD ([id number]), film editor SVETLANA ALFONSO ([id number]) on 06/27/2017 4:47:15 PM Referred By: Confirmed By:SWATHI ANDRADE MD
== END 2017-06-23 13:34 | DRG 637 ==
LOC: ERS 01:53 → EEVIPCON 01:53 → IMCU/EMU 03:00 → ONC 06-19 14:07
PROVIDERS: ADMIT Family Medicine; ATTEND Family Medicine
DX: E11.10 Type 2 diabetes mellitus with ketoacidosis without coma (principal); G93.41 Metabolic encephalopathy; E86.1 Hypovolemia; Z79.4 Long term (current) use of insulin; E87.6 Hypokalemia
CPT/HCPCS: 36415; 36416; 80048; 82010; 82330; 82435; 82565; 82803; 82805; 82947; 83036; 83605; 83735; 84100; 84132; 84295; 84681; 85014; 85025; 93005; 94760; 96374; A4216; J1815; J7050